=== PATIENT | male | born 1950 | race Caucasian/White ===

== ENCOUNTER 2023-05-10 20:47 | Emergency (ER) | payer OTHER, BC ==
[~2023-05-10 20:47] MED LIST: CEPH-571 PO; NO HOME MEDS
[2023-05-10 20:57] VITALS: TEMP 98
[2023-05-10] MEDS: ketorolac trometh. 30mg/ml inj. IM ONE (22:10)
[2023-05-10] MEDS ORDERED: CYCL5TAB PO (23:14)
[2023-05-10 23:33] VITALS: BP 110/90; PULSE 78; RESP 16; O2SAT 98
== END 2023-05-10 23:35 | disposition home or self-care (01) ==
LOC: ER 20:47
DX: S16.1XXA Strain of muscle, fascia and tendon at neck level, initial encounter (principal); M43.6 Torticollis; F12.90 Cannabis use, unspecified, uncomplicated; Z79.2 Long term (current) use of antibiotics; X58.XXXA Exposure to other specified factors, initial encounter; Y93.89 Activity, other specified; Y92.89 Other specified places as the place of occurrence of the external cause; Y99.8 Other external cause status
CPT/HCPCS: 96372; 99283; J1885

== ENCOUNTER 2025-01-27 02:20 | Emergency (ER) | payer OTHER, BC, MEDICAID ==
[~2025-01-27] VITALS: Ht 172.7 cm; Wt 73.0 kg
[~2025-01-27 02:20] MED LIST changes: +CYCL-920 PO
[2025-01-27 02:21] VITALS: BP 142/79; PULSE 68; O2SAT 98
--- NOTE | 2025-01-27 02:32 | Physician Documentation ---
History of Present Illness ~ Chief Complaint: Back Pain Stated Complaint: HEADACHE A ALS Time Seen by MD: 02:31 HPI Patient presents to the emergency room with chief complaint of headache and neck pain abdominal pain back pain. He states he was seen at [facility] however states he saw two gentleman at the time but nobody told him anything. I asked him if any imaging was performed and he says he doesn't know. He states they gave him two Tylenol and that has the only medicine he got. He said he fell a proximally 10 days ago and continues to have pain. Medication Reconciliation Allergies: Coded Allergies: No Known Allergies (Unverified , 01/27/25) Scheduled Cephalexin (Keflex), 1 CAP PO Q6H Scheduled PRN Cyclobenzaprine HCl (Cyclobenzaprine HCl), 1 TAB PO TID PRN PRN for muscle spasms Miscellaneous Medications Home Med List (No Home Medications), (Reported) Past Medical History Past Medical History: Hernia, Chronic Pain, Chronic Back Pain Past Surgical History: abdominal surgery, orthopedic surgeries Alcohol Use: Rarely Drug Use: marijuana Lives In: Home Review of Systems ROS All review of systems negative except as per HPI Physical Exam Physical Exam Vital Signs: Heart Rate: 68, Respiratory Rate: 16, BP: 142/79, Pulse Oximetry: 98, Weight: 73.000 Physical Exam General: Patient is awake, alert, oriented x4 in no acute distress Head: Normocephalic and atraumatic. Eyes: Conjunctival normal. EOMI. PERRL. ENT: Mucous membranes moist. Neck: Supple, trachea is midline. Chest: Clear to auscultation bilaterally without rales, rhonchi, or wheezes. There is no accessory muscle use or retractions. Cardiac: RRR without murmurs, gallops, or rubs. Abd: Soft, nondistended, nontender, with normoactive bowel sounds. No guarding, rebound, or rigidity. Extremities: Two scabs measuring 3 x 3 cm and 5 x 5 cm on his left sanchez with a surrounding erythema. No fluctuance Progress Progress Note We are able to obtain imaging from [facility] which showed CT scans of head neck chest abdomen and pelvis and all were negative. Results/Orders Results/Orders Completed Orders - СЕРГЕЙ MOSES MD Acetaminophen 325mg Tablet (Tylenol Tabl (01/27/25 02:40) Vital Signs 01/27/25 02:21 Pulse 68 Resp 16 B/P (MAP) 142/79 Pulse Ox 98 Medical Decision Making Additional information obtaine: old records Findings Patient presents to the emergency room with whole-body pain. Differentials include but are not limited to viral syndrome, musculoskeletal pain, infectious process, cellulitis. Patient has a scab in his left sanchez with surrounding erythema and given risks versus benefit we will treat this for cellulitis. Mey ent is body pain that has generalized. Given reassuring whole-body scans on the I do not feel repeat imaging is necessary especially in the light of stable vitals. Differential Dx:Considerations: Aortic dissection Departure Disposition: HOME / SELF CARE / HOMELESS Impression: Primary Impression: Myalgia Condition: Stable Discharge Instructions: RICE Therapy for Routine Care of Injuries, [id number] Referrals: NO PRIMARY CARE PROVIDER (PCP) Prescriptions Ibuprofen* (Motrin*) 400 Mg Tablet 400 MG PO Q6H, #20 TAB Prov: СЕРГЕЙ MOSES MD 01/27/25 Acetaminophen (Tylenol Extra Strength) 500 Mg Tablet 2 TAB PO Q6H PRN PRN for pain or fever for 3 Days, #30 TAB Prov: СЕРГЕЙ MOSES MD 01/27/25 Signature Scribe Signature: No scribe Attestation: The note accurately reflects work and decisions made by me.Сергей Moses MD 01/27/25 02:45 СЕРГЕЙ MOSES MD Jan 27, 2025 02:32
[2025-01-27] MEDS ORDERED: ACET-2615 PO (02:45)
[2025-01-27] MEDS ORDERED: IBUP-1984 PO (02:45)
[2025-01-27] MEDS ORDERED: CEPH-585 PO (02:51)
[2025-01-27 03:09] VITALS: RESP 16
[2025-01-27] MEDS: ketorolac trometh 15mg/ml vial 15 MG/ML ML IV ONE (03:09)
== END 2025-01-27 03:26 | disposition home or self-care (01) ==
LOC: ER 02:20
DX: M79.10 Myalgia, unspecified site (principal); G89.29 Other chronic pain; F12.90 Cannabis use, unspecified, uncomplicated; Z98.890 Other specified postprocedural states
CPT/HCPCS: 96374; 99283; J1885